=== PATIENT | female | born 1955 | race Caucasian/White ===

== ENCOUNTER 2017-12-26 14:24 | Inpatient (IN) ==
[2017-12-26] MEDS ORDERED: Piperacillin/Tazobactam 3.375 GM in 0.9 % Sodium Chloride Mini Bag 100 ML IVPB ONE (14:37)
[2017-12-26] MEDS ORDERED: 0.9 % Sodium Chloride 1,000 ML IVC ONE ×3 (14:37→15:31)
[2017-12-26] MEDS ORDERED: Isovue-370 500 ML INFUS..BTL IV ONE (14:37)
[2017-12-26] MEDS ORDERED: Ondansetron 4 MG/2 ML VIAL IVP ONE (14:37)
--- NOTE | 2017-12-26 14:40 | Emergency Department Note ---
Disposition Clinical Impression: Septic shock, Cellulitis, Panniculitis, ANA M (acute kidney injury), Lung nodule Disposition: Admitted As Inpatient Condition: Undetermined General Adult HPI - General Chief complaint: ED Wound/Laceration Stated complaint: Right leg,ABD,Vag swelling Time Seen by Provider: 12/26/17 14:32 - History of Present Illness Pain Scale: 5 - Related Data Home Medications Medication Instructions Recorded Confirmed Allopurinol [Zyloprim 100 MG] 100 mg PO DAILY 07/23/15 12/26/17 Apixaban [Eliquis] 5 mg PO BID 07/23/15 12/26/17 Atenolol [Tenormin] 25 mg PO DAILY 07/23/15 12/26/17 Atorvastatin Calcium [Lipitor] 20 mg PO DAILY 07/23/15 12/26/17 Ferrous Sulfate 325 mg PO DAILY 07/23/15 12/26/17 Lisinopril/Hydrochlorothiazide 1 tab PO DAILY 07/23/15 12/26/17 [Zestoretic 10-12.5 mg Tablet] HYDROcodone/Acet 10/325 mg [[place] 1 tab PO BID PRN 02/18/17 12/26/17 10-325 mg] Isosorbide MONOnitrate (24 HR) 30 mg PO DAILY 02/18/17 12/26/17 [Imdur] Omeprazole [PriLOSEC] 20 mg PO DAILY 02/18/17 12/26/17 Citalopram Hydrobromide 40 mg PO HS 12/26/17 12/26/17 [Citalopram HBr] Allergies Allergy/AdvReac Type Severity Reaction Status Date / Time metoprolol AdvReac Hives Verified 12/26/17 14:31 Past Medical History - Past Medical History Medical history: Reports: atrial fibrillation, hypertension Surgical history: Reports: appendectomy, cholecystectomy, hysterectomy, orthopedic, other Psychiatric history: Reports: depression - Social History Smoking Status: Never smoker Smokeless Tobacco Status: No Alcohol use: Reports: none Drug use: Reports: none Course Vital Signs Temperature 102.0 F H 12/26/17 14:29 Pulse Rate 105 12/26/17 14:29 Respiratory Rate 18 12/26/17 14:29 Blood Pressure 88/61 12/26/17 14:29 O2 Sat by Pulse Oximetry 94 12/26/17 14:29 Temperature 97.6 F 12/26/17 18:00 Pulse Rate 83 12/26/17 20:15 Respiratory Rate 16 12/26/17 18:00 Blood Pressure 94/54 12/26/17 18:00 O2 Sat by Pulse Oximetry 96 12/26/17 18:00 Oxygen Delivery Oxygen Delivery Room Air Medical Decision Making - Lab Data Result diagrams: 12/26/17 14:38 12/26/17 14:38 Lab Results 12/26/17 12/26/17 12/26/17 Range/Units 14:38 14:38 14:38 WBC 22.7 H (4.3-11.1) K/mcL RBC 4.12 (3.82-4.97) M/mcL Hgb 12.8 (11.5-15.4) g/dL Hct 38.2 (35.3-44.9) % MCV 92.7 (83.0-100.0) fL MCH 31.1 (28.0-33.3) pg MCHC 33.5 (31.6-35.5) g/dL RDW 13.2 (11.5-14.5) % Plt Count 223 (140-400) K/mcL MPV 10.6 (9.4-12.4) fL Immature Gran % 1.3 (0-4) % Seg Neutrophils % 77.6 % Lymphocytes % 7.4 % Monocytes % 13.3 % Eosinophils % 0.2 % Basophils % 0.2 % Neutrophils # 17.6 H (1.6-8.9) K/mcL Lymphocytes # 1.7 (0.6-4.6) K/mcL Monocytes # 3.0 H (0.0-1.3) K/mcL Eosinophils # 0.0 (0.0-0.6) K/mcL Basophils # 0.1 (0.0-0.2) K/mcL Sodium 131 L (136-145) mEq/L Potassium 3.5 (3.5-5.1) mEq/L Chloride 95 L (98-107) mEq/L Carbon Dioxide 21 L (23-29) mEq/L BUN 44 H (8-23) mg/dL Creatinine 2.32 H (0.60-1.20) mg/dL Est GFR ( Amer) 26 L (> 60) Est GFR (Non-Af Amer) 21 L (> 60) BUN/Creatinine Ratio 19 (6-26) Glucose 103 (70-105) mg/dL Calculated Osmolality 283 (280-300) Lactic Acid 2.7 H (0.5-2.2) mmol/L Calcium 8.8 (8.6-10.3) mg/dL Total Bilirubin 0.9 (0.3-1.0) mg/dL AST 11 L (13-39) Units/L ALT 11 (7-52) Units/L Alkaline Phosphatase 86 (34-104) Units/L Troponin I < 0.03 (< 0.04) ng/mL Serum Total Protein 7.5 (6.4-8.9) g/dL Albumin 3.5 (3.5-5.7) g/dL Globulin 4.0 H (2.4-3.5) g/dL Albumin/Globulin Ratio 0.9 L (1.1-2.2) Urine Color (Yellow) Urine Clarity (Clear) Urine pH (5.0-8.0) pH Units Ur Specific [place] (1.010-1.025) Urine Protein (Neg-Trace) mg/dL Urine Glucose (UA) (Normal) mg/dL Urine Ketones (Negative) mg/dL Urine Blood (Negative) Urine Nitrite (Negative) Urine Bilirubin (Negative) Urine Urobilinogen (Normal) mg/dL Ur Leukocyte Esterase (Negative) Urine Microscopic RBC (0-3) per hpf Urine Microscopic WBC (0-3) per hpf Ur Squamous Epith Cells (None-Few) per lpf Ur Renal Epithelial Cell (None-Few) per hpf Urine Bacteria (None-Few) per hpf Hyaline Casts (None-Few) per lpf Granular Casts (None Seen) per lpf Ur Culture Indicated? (NO) 12/26/17 Range/Units 15:03 WBC (4.3-11.1) K/mcL RBC (3.82-4.97) M/mcL Hgb (11.5-15.4) g/dL Hct (35.3-44.9) % MCV (83.0-100.0) fL MCH (28.0-33.3) pg MCHC (31.6-35.5) g/dL RDW (11.5-14.5) % Plt Count (140-400) K/mcL MPV (9.4-12.4) fL Immature Gran % (0-4) % Seg Neutrophils % % Lymphocytes % % Monocytes % % Eosinophils % % Basophils % % Neutrophils # (1.6-8.9) K/mcL Lymphocytes # (0.6-4.6) K/mcL Monocytes # (0.0-1.3) K/mcL Eosinophils # (0.0-0.6) K/mcL Basophils # (0.0-0.2) K/mcL Sodium (136-145) mEq/L Potassium (3.5-5.1) mEq/L Chloride (98-107) mEq/L Carbon Dioxide (23-29) mEq/L BUN (8-23) mg/dL Creatinine (0.60-1.20) mg/dL Est GFR ( Amer) (> 60) Est GFR (Non-Af Amer) (> 60) BUN/Creatinine Ratio (6-26) Glucose (70-105) mg/dL Calculated Osmolality (280-300) Lactic Acid (0.5-2.2) mmol/L Calcium (8.6-10.3) mg/dL Total Bilirubin (0.3-1.0) mg/dL AST (13-39) Units/L ALT (7-52) Units/L Alkaline Phosphatase (34-104) Units/L Troponin I (< 0.04) ng/mL Serum Total Protein (6.4-8.9) g/dL Albumin (3.5-5.7) g/dL Globulin (2.4-3.5) g/dL Albumin/Globulin Ratio (1.1-2.2) Urine Color [place] A (Yellow) Urine Clarity Turbid A (Clear) Urine pH 5.0 (5.0-8.0) pH Units Ur Specific [place] > 1.030 H (1.010-1.025) Urine Protein 30 H (Neg-Trace) mg/dL Urine Glucose (UA) Normal (Normal) mg/dL Urine Ketones Trace H (Negative) mg/dL Urine Blood Small H (Negative) Urine Nitrite Negative (Negative) Urine Bilirubin Moderate H (Negative) Urine Urobilinogen Normal (Normal) mg/dL Ur Leukocyte Esterase Large H (Negative) Urine Microscopic RBC 0-3 (0-3) per hpf Urine Microscopic WBC TNTC H (0-3) per hpf Ur Squamous Epith Cells Many H (None-Few) per lpf Ur Renal Epithelial Cell Moderate H (None-Few) per hpf Urine Bacteria Many H (None-Few) per hpf Hyaline Casts Few (None-Few) per lpf Granular Casts Many H (None Seen) per lpf Ur Culture Indicated? NO. A (NO) Critical Care Time Critical Care Time: Yes Total Critical Care Time: 30 Attestation: The high probability of a clinically significant, sudden or life threatening deterioration of the [] system(s) required my full and direct attention, intervention and personal management. The aggregate critical care time was [] minutes. This time is in addition to time spent performing reported procedures but includes the following: [] Data Review and interpretation [] Patient assessment and monitoring of vital signs [] Documentation [] Medication orders and management Attestation Statement - Attestation Attestation: I examined this patient and my medical decision-making was reviewed with the Resident Physician. I agree with the documented findings, disposition and treatment plan as described except to the extent set forth below. [id number] time provided Patient arrives with erythema and swelling to her lower anterior pelvis. Clinically she has panniculitis with cellulitis and possible underlying abscess. She is febrile and tachycardic and hypotensive meet sepsis criteria. She will require broad-spectrum antibiotics, fluid resuscitation and admission. It was mutually agreed to pursue CT scanning to determine the depth of the infection
--- NOTE | 2017-12-26 14:41 | Emergency Department Note ---
Disposition Clinical Impression: Septic shock, Panniculitis, ANA M (acute kidney injury), Lung nodule Cellulitis Qualifiers: Site of cellulitis: trunk Site of cellulitis of trunk: abdominal wall Qualified Code(s): L03.311 - Cellulitis of abdominal wall Disposition: Admitted As Inpatient Condition: Undetermined Referrals: Miriam Brantley [employer] [Advanced Practice Nurse] - Forms: ED Satisfaction Letter Time of Disposition: 16:26 General Adult HPI - General Chief complaint: ED Wound/Laceration Stated complaint: Right leg,ABD,Vag swelling Time Seen by Provider: 12/26/17 14:32 Source: patient Mode of arrival: ambulatory Limitations: no limitations Nursing Notes Reviewed: Yes Vital Signs Reviewed: Yes - History of Present Illness HPI Narrative: 62-year-old female arrives to the emergency department with concern for abscess , cellulitis of the patient's suprapubic panus. The patient states this started roughly 3 days ago and is continued to worsen. The patient is noted to be febrile at 102 at home. The patient needs sepsis criteria with a source being the sialitis an abscess of her groin. The patient is noted to be tachycardic, hypotensive. Sepsis subset will be ordered. The patient was started on broad-spectrum antibiotics. After conversation with the patient, we will perform a CT of her abdomen and pelvis with concern for spreading of the infection. The patient will be started on IV hydration and brought sect remainder buttocks as discussed. She denies any other complaints at this time other than a mild amount of nausea. She denies any abdominal pain, chest pain, difficulty breathing. The patient does admit to baseline urinary frequency. She denies any other complaints. Patient states she does have a history of abscesses in the past but it is been a long time. Pain Scale: 5 - Related Data Home Medications Medication Instructions Recorded Confirmed Allopurinol [Zyloprim 100 MG] 100 mg PO DAILY 07/23/15 12/26/17 Apixaban [Eliquis] 5 mg PO BID 07/23/15 12/26/17 Atenolol [Tenormin] 25 mg PO DAILY 07/23/15 12/26/17 Atorvastatin Calcium [Lipitor] 20 mg PO DAILY 07/23/15 12/26/17 Ferrous Sulfate 325 mg PO DAILY 07/23/15 12/26/17 Lisinopril/Hydrochlorothiazide 1 tab PO DAILY 07/23/15 12/26/17 [Zestoretic 10-12.5 mg Tablet] HYDROcodone/Acet 10/325 mg [[place] 1 tab PO BID PRN 02/18/17 12/26/17 10-325 mg] Isosorbide MONOnitrate (24 HR) 30 mg PO DAILY 02/18/17 12/26/17 [Imdur] Omeprazole [PriLOSEC] 20 mg PO DAILY 02/18/17 12/26/17 Citalopram Hydrobromide 40 mg PO HS 12/26/17 12/26/17 [Citalopram HBr] Allergies Allergy/AdvReac Type Severity Reaction Status Date / Time metoprolol AdvReac Hives Verified 12/26/17 14:31 All systems ED: reviewed and negative except as stated. Constitutional: Reports: fever, chills, weakness ENT ED: Denies: dysphagia Cardiovascular: Denies: chest pain Respiratory: Denies: dyspnea Gastrointestinal: Reports: abdominal pain, nausea. Denies: vomiting, diarrhea, constipation, hematemesis, melena, hematochezia Genitourinary: Reports: frequency. Denies: urgency, dysuria, hematuria, discharge, abnormal menses Musculoskeletal: Reports: myalgia. Denies: back pain, neck pain, arthralgia Integumentary: Reports: lesions Neurological: Reports: weakness. Denies: headache, numbness, paresthesias, confusion Past Medical History - Past Medical History Attestation: Yes The following information was validated with the patient. Source: patient, old records reviewed Medical history: Reports: atrial fibrillation, hypertension Surgical history: Reports: appendectomy, cholecystectomy, hysterectomy, orthopedic, other Psychiatric history: Reports: depression - Social History Smoking Status: Never smoker Smokeless Tobacco Status: No Alcohol use: Reports: none Drug use: Reports: none Physical Exam - General Limitations: no limitations General appearance: alert, in no apparent distress - Head Head exam: atraumatic, normocephalic, normal inspection - Eye Eye exam: Present: normal appearance, PERRL, EOMI - ENT ENT exam: normal exam, normal oropharynx, mucous membranes moist - Neck Neck exam: Present: normal inspection, full ROM, trachea midline - Chest Chest inspection: Present: normal inspection - Respiratory Respiratory exam: Present: normal lung sounds bilaterally - Cardiovascular Cardiovascular exam: Present: normal rhythm, tachycardia, normal heart sounds - Abdominal Exam Abdominal exam: Present: soft, tenderness (Suprapubic region), other (Patient has a large amount of erythema with induration and abscess in her suprapubic region along the pannus. Consistent with panniculitis. In addition the patient has some hemorrhagic bullae of this region. There is a small amount of blood noted around the abscess and bullae as well. Tender to palpation and hot to the touch.). Absent: distention, guarding, rebound, rigidity - Extremities Exam Extremities exam: Present: normal inspection, full ROM. Absent: tenderness, pedal edema - Neurological Exam Neurological exam: Present: alert, oriented X3 - Skin Skin exam: Present: warm, dry Course Vital Signs Temperature 102.0 F H 12/26/17 14:29 Pulse Rate 105 12/26/17 14:29 Respiratory Rate 18 12/26/17 14:29 Blood Pressure 88/61 12/26/17 14:29 O2 Sat by Pulse Oximetry 94 12/26/17 14:29 Temperature 100.9 F H 12/26/17 16:07 Pulse Rate 77 12/26/17 16:07 Respiratory Rate 16 12/26/17 16:07 Blood Pressure 91/58 12/26/17 16:07 O2 Sat by Pulse Oximetry 94 12/26/17 16:07 Oxygen Delivery Oxygen Delivery Room Air Medical Decision Making - [facility] Narrative Medical decision making narrative: Patient's workup in the emergency department demonstrates septic shock. The patient has an acute kidney injury as well. The patient's abdominal and pelvic CT scan reveals no definitive abscess and only demonstrates cellulitis. No gas or other concerning for Shona's gangrene. The patient was given broad- spectrum antibiotics including a dose of vancomycin and Zosyn here in the emergency department as well as 30 mL/kg IV fluids. The patient's blood pressure quickly improved after the first liter of IV fluids. The patient will be admitted to the hospital for further workup and care. Patient agrees to plan of care. No further questions or concerns are noted at this time. Accepted by Dr. Hillman. - Lab Data Lab results reviewed: Yes I reviewed the patient's lab results. Result diagrams: 12/26/17 14:38 12/26/17 14:38 Lab Results 12/26/17 12/26/17 12/26/17 Range/Units 14:38 14:38 14:38 WBC 22.7 H (4.3-11.1) K/mcL RBC 4.12 (3.82-4.97) M/mcL Hgb 12.8 (11.5-15.4) g/dL Hct 38.2 (35.3-44.9) % MCV 92.7 (83.0-100.0) fL MCH 31.1 (28.0-33.3) pg MCHC 33.5 (31.6-35.5) g/dL RDW 13.2 (11.5-14.5) % Plt Count 223 (140-400) K/mcL MPV 10.6 (9.4-12.4) fL Immature Gran % 1.3 (0-4) % Seg Neutrophils % 77.6 % Lymphocytes % 7.4 % Monocytes % 13.3 % Eosinophils % 0.2 % Basophils % 0.2 % Neutrophils # 17.6 H (1.6-8.9) K/mcL Lymphocytes # 1.7 (0.6-4.6) K/mcL Monocytes # 3.0 H (0.0-1.3) K/mcL Eosinophils # 0.0 (0.0-0.6) K/mcL Basophils # 0.1 (0.0-0.2) K/mcL Sodium 131 L (136-145) mEq/L Potassium 3.5 (3.5-5.1) mEq/L Chloride 95 L (98-107) mEq/L Carbon Dioxide 21 L (23-29) mEq/L BUN 44 H (8-23) mg/dL Creatinine 2.32 H (0.60-1.20) mg/dL Est GFR ( Amer) 26 L (> 60) Est GFR (Non-Af Amer) 21 L (> 60) BUN/Creatinine Ratio 19 (6-26) Glucose 103 (70-105) mg/dL Calculated Osmolality 283 (280-300) Lactic Acid 2.7 H (0.5-2.2) mmol/L Calcium 8.8 (8.6-10.3) mg/dL Total Bilirubin 0.9 (0.3-1.0) mg/dL AST 11 L (13-39) Units/L ALT 11 (7-52) Units/L Alkaline Phosphatase 86 (34-104) Units/L Troponin I < 0.03 (< 0.04) ng/mL Serum Total Protein 7.5 (6.4-8.9) g/dL Albumin 3.5 (3.5-5.7) g/dL Globulin 4.0 H (2.4-3.5) g/dL Albumin/Globulin Ratio 0.9 L (1.1-2.2) Urine Color (Yellow) Urine Clarity (Clear) Urine pH (5.0-8.0) pH Units Ur Specific [place] (1.010-1.025) Urine Protein (Neg-Trace) mg/dL Urine Glucose (UA) (Normal) mg/dL Urine Ketones (Negative) mg/dL Urine Blood (Negative) Urine Nitrite (Negative) Urine Bilirubin (Negative) Urine Urobilinogen (Normal) mg/dL Ur Leukocyte Esterase (Negative) Urine Microscopic RBC (0-3) per hpf Urine Microscopic WBC (0-3) per hpf Ur Squamous Epith Cells (None-Few) per lpf Ur Renal Epithelial Cell (None-Few) per hpf Urine Bacteria (None-Few) per hpf Hyaline Casts (None-Few) per lpf Granular Casts (None Seen) per lpf Ur Culture Indicated? (NO) 12/26/17 Range/Units 15:03 WBC (4.3-11.1) K/mcL RBC (3.82-4.97) M/mcL Hgb (11.5-15.4) g/dL Hct (35.3-44.9) % MCV (83.0-100.0) fL MCH (28.0-33.3) pg MCHC (31.6-35.5) g/dL RDW (11.5-14.5) % Plt Count (140-400) K/mcL MPV (9.4-12.4) fL Immature Gran % (0-4) % Seg Neutrophils % % Lymphocytes % % Monocytes % % Eosinophils % % Basophils % % Neutrophils # (1.6-8.9) K/mcL Lymphocytes # (0.6-4.6) K/mcL Monocytes # (0.0-1.3) K/mcL Eosinophils # (0.0-0.6) K/mcL Basophils # (0.0-0.2) K/mcL Sodium (136-145) mEq/L Potassium (3.5-5.1) mEq/L Chloride (98-107) mEq/L Carbon Dioxide (23-29) mEq/L BUN (8-23) mg/dL Creatinine (0.60-1.20) mg/dL Est GFR ( Amer) (> 60) Est GFR (Non-Af Amer) (> 60) BUN/Creatinine Ratio (6-26) Glucose (70-105) mg/dL Calculated Osmolality (280-300) Lactic Acid (0.5-2.2) mmol/L Calcium (8.6-10.3) mg/dL Total Bilirubin (0.3-1.0) mg/dL AST (13-39) Units/L ALT (7-52) Units/L Alkaline Phosphatase (34-104) Units/L Troponin I (< 0.04) ng/mL Serum Total Protein (6.4-8.9) g/dL Albumin (3.5-5.7) g/dL Globulin (2.4-3.5) g/dL Albumin/Globulin Ratio (1.1-2.2) Urine Color [place] A (Yellow) Urine Clarity Turbid A (Clear) Urine pH 5.0 (5.0-8.0) pH Units Ur Specific [place] > 1.030 H (1.010-1.025) Urine Protein 30 H (Neg-Trace) mg/dL Urine Glucose (UA) Normal (Normal) mg/dL Urine Ketones Trace H (Negative) mg/dL Urine Blood Small H (Negative) Urine Nitrite Negative (Negative) Urine Bilirubin Moderate H (Negative) Urine Urobilinogen Normal (Normal) mg/dL Ur Leukocyte Esterase Large H (Negative) Urine Microscopic RBC 0-3 (0-3) per hpf Urine Microscopic WBC TNTC H (0-3) per hpf Ur Squamous Epith Cells Many H (None-Few) per lpf Ur Renal Epithelial Cell Moderate H (None-Few) per hpf Urine Bacteria Many H (None-Few) per hpf Hyaline Casts Few (None-Few) per lpf Granular Casts Many H (None Seen) per lpf Ur Culture Indicated? NO. A (NO) - Radiology Data Radiology results reviewed: Yes I reviewed the patient's radiology results. - EKG Data EKG #1 EKG attestation: Yes I reviewed and interpreted this EKG. EKG results narrative: Heart rate 97 bpm. Normal sinus rhythm. No ST elevation but there is some noted ST depression in V3, V4, V5. No other acute changes noted. EKG with nonspecific changes noted from 10/21/2015. Sepsis Reassessment Note - Evaluation Current Stage of Sepsis: septic shock Possible Source of Sepsis: skin/soft tissue - Focused Exam Date of Encounter: 12/26/17 Time of Encounter: 15:31 Vital Signs: Vital Signs Temp Pulse Resp BP Pulse Ox 12/26/17 16:07 100.9 F H 77 16 91/58 94 12/26/17 15:23 89 20 96/60 91 12/26/17 14:29 102.0 F H 105 18 88/61 94 Respiratory Exam: Present: CTA bilaterally Cardiovascular Exam: Present: tachycardia Capillary Refill: < 2 seconds Peripheral Pulse Strength: 3+ normal Peripheral Pulse Location: Pedal Skin Exam: normal turgor
[2017-12-26 14:55] LABS: Basophils # 0.1 K/mcL (0.0-0.2); Basophils % 0.2 %; Eosinophils % 0.2 %; Hematocrit 38.2 % (35.3-44.9); Hemoglobin 12.8 g/dL (11.5-15.4); Immature Granulocytes % 1.3 % (0-4); Lymphocytes # 1.7 K/mcL (0.6-4.6); Lymphocytes % 7.4 %; Mean Corpuscular HGB Conc 33.5 g/dL (31.6-35.5); Mean Corpuscular Hemoglobin 31.1 pg (28.0-33.3); Mean Corpuscular Volume 92.7 fL (83.0-100.0); Mean Platelet Volume 10.6 fL (9.4-12.4); Monocytes % 13.3 %; Neutrophils # 17.6 K/mcL (1.6-8.9); Platelet Count 223 K/mcL (140-400); Red Blood Count 4.12 M/mcL (3.82-4.97); Red Cell Distribution Width 13.2 % (11.5-14.5); Segmented Neutrophils % 77.6 %
[2017-12-26 15:12] LABS: Bilirubin,Urine Moderate (Negative); Blood,Urine Small (Negative); Clarity,Urine Turbid (Clear); Color,Urine Orange (Yellow); Glucose,Urine (UA) Normal (Normal); Ketones,Urine Trace mg/dL (Negative); Leukocyte Esterase,Urine Large (Negative); Nitrite,Urine Negative (Negative); Protein,Urine 30 mg/dL (Neg-Trace); Specific Gravity,Urine > 1.030 (1.010-1.025); Urobilinogen,Urine Normal (Normal)
[2017-12-26 15:14] LABS: Hyaline Casts,Urine Few per lpf (None-Few); Squamous Epithelial Cell,Urine Many per lpf (None-Few); WBC,Urine TNTC per hpf (0-3)
[2017-12-26 15:19] LABS: Troponin I < 0.03 ng/mL (< 0.04)
[2017-12-26 15:20] LABS: Alanine Aminotransferase 11 Units/L (7-52); Albumin 3.5 g/dL (3.5-5.7); Albumin/Globulin Ratio 0.9 (1.1-2.2); Alkaline Phosphatase 86 Units/L (34-104); Aspartate Amino Transferase 11 Units/L (13-39); BUN/Creatinine Ratio 19 (6-26); Bilirubin,Total 0.9 mg/dL (0.3-1.0); Blood Urea Nitrogen 44 mg/dL (8-23); Calcium 8.8 mg/dL (8.6-10.3); Carbon Dioxide 21 mEq/L (23-29); Chloride 95 mEq/L (98-107); Glucose 103 mg/dL (70-105); Osmolality,Calculated 283 (280-300); Potassium 3.5 mEq/L (3.5-5.1); Sodium 131 mEq/L (136-145); Total Protein 7.5 g/dL (6.4-8.9); eGFR For Non-African Americans 21 (> 60)
[2017-12-26 15:30] LABS: Granular Casts,Urine Many per lpf (None Seen)
[2017-12-26 15:31] LABS: Bacteria,Urine Many per hpf (None-Few)
[2017-12-26 15:32] LABS: RBC,Urine 0-3 per hpf (0-3)
[2017-12-26 15:33] LABS: Renal Epithelial Cells,Urine Moderate per hpf (None-Few)
[2017-12-26] MEDS ORDERED: Naloxone 0.4 MG/ML INJ IVP PRN (18:47)
[2017-12-26] MEDS ORDERED: *HR* HYDROcodone/Acet 10/325 mg TABLET PO PRN (18:53)
--- NOTE | 2017-12-26 19:01 | Internal Med History&Physical ---
Date of Encounter: 12/26/17 Time of Encounter: 18:00 Internal Medicine - H&P: HPI Chief complaint: Abdominal cellulitis Admitted From: Home Plans for Post Hospital Care: Home History of present illness: Patient is a 62-year-old female with past medical history significant for atrial fibrillation on Eliquis, hypertension and hyperlipidemia who presents to the ER on 12/26/17 due to right abdomen cellulitis. Patient reports a 2 day history of right abdominal cellulitis with bloody drainage. Patient also reports of fevers and chills with a MAXIMUM TEMPERATURE of 103 at home. Patient came to the ER for further evaluation. In the ER, patient was found to be septic with acute renal failure in addition to leukocytosis with fever and elevated lactic acid. CT of the abdomen was done which showed findings suggestive of cellulitis ascending from the right lower quadrant anterior abdominal wall into the right groin and mons pubis but no findings suggestive of associated abscess. Patient also with incidental finding of a 1.2 cm x 0.8 cm solid nodule of the right lower lobe. Patient will be admitted to the progressive unit for sepsis secondary to abdominal cellulitis. Past Med Surg Social Fam HX - Past Medical History Medical history: atrial fibrillation, hypertension Additional medical history: iron deficiency anemia, gout, a fib, OBESITY, DEPRESSION Psychiatric history: depression - Past Surgical History Surgical History: appendectomy, cholecystectomy, hysterectomy, orthopedic, other Additional surgical history: RIGHT ELBOW SURGERY, TUBAL LIGATION, LEFT BREAST BIOPSY, partial hysterectomy - Social History Smoking Status: Never smoker Smokeless Tobacco Status: No Alcohol use: none Drug use: none - Additional Family History Additional family history: Noncontributory Internal Medicine - H&P: Meds Allopurinol [Zyloprim 100 MG] 100 mg PO DAILY 07/23/15 [History] Apixaban [Eliquis] 5 mg PO BID 07/23/15 [History] Atenolol [Tenormin] 25 mg PO DAILY 07/23/15 [History] Atorvastatin Calcium [Lipitor] 20 mg PO DAILY 07/23/15 [History] Ferrous Sulfate 325 mg PO DAILY 07/23/15 [History] Lisinopril/Hydrochlorothiazide [Zestoretic 10-12.5 mg Tablet] 1 tab PO DAILY [History] HYDROcodone/Acet 10/325 mg [[place]ilbert 10-325 mg] 1 tab PO BID PRN 02/18/17 [History] Isosorbide MONOnitrate (24 HR) [Imdur] 30 mg PO DAILY 02/18/17 [History] Omeprazole [PriLOSEC] 20 mg PO DAILY 02/18/17 [History] Citalopram Hydrobromide [Citalopram HBr] 40 mg PO HS 12/26/17 [History] 3 Allergy/AdvReac Type Severity Reaction Status Date / Time metoprolol AdvReac Hives Verified 12/26/17 14:31 All Systems PM: A 10-system review of systems was performed and is negative for pertinent findings except as documented above in the HPI. - Constitutional Vitals: Temp Pulse Resp BP Pulse Ox 97.6 F 75 16 94/54 96 12/26/17 18:00 12/26/17 18:00 12/26/17 18:00 12/26/17 18:00 12/26/17 18:00 General appearance: Present: A&O X 3, no acute distress - Head Head exam: Present: normocephalic - Eye Eye exam: Present: normal appearance Pupils: Present: PERRL - ENT ENT exam: Present: mucous membranes moist - Respiratory Respiratory exam: Present: CTAB. Absent: accessory muscle use, rales, rhonchi, wheezes - Cardiovascular Cardiovascular exam: Present: RRR, +S1, +S2. Absent: diastolic murmur, gallop, rubs, systolic murmur - GI/Abdominal GI/Abdominal exam: Present: normal bowel sounds, soft, no peritoneal signs. Absent: distended, tenderness - Extremities Exam Extremities exam: Absent: pedal edema - Neurological Exam Neurological exam: Present: oriented X3 - Psychiatric Psychiatric exam: Present: normal mood - Skin Skin exam: Present: erythema (Patient with large cellulitis with drainage and indurated area which is tender to touch) Internal Med - H&P Results - Labs CBC & Chem 7: 12/26/17 14:38 12/26/17 14:38 - Assessment and plan (1) Sepsis Current Visit: Yes Status: Acute Assessment and plan: Patient with leukocytosis, acute renal failure fever and lactic acid secondary to cellulitis and UTI Will continue IV antibiotics and IV fluids as below Qualifiers: Sepsis type: sepsis due to unspecified organism Qualified Code(s): A41.9 - Sepsis, unspecified organism (2) Cellulitis Current Visit: Yes Status: Acute Assessment and plan: Patient with large cellulitis and indurated region which was tender to touch with some drainage CT of the abdomen was done which showed findings suggestive of cellulitis ascending from the right lower quadrant anterior abdominal wall into the right groin and mons pubis but no findings suggestive of associated abscess. Continue IV vancomycin General surgery consulted and appreciate any additional recommendations Qualifiers: Site of cellulitis: trunk Site of cellulitis of trunk: abdominal wall Qualified Code(s): L03.311 - Cellulitis of abdominal wall (3) UTI (urinary tract infection) Current Visit: Yes Status: Acute Assessment and plan: Patient reports his symptoms of dysuria Urinalysis not sent due to contamination Will continue IV Zosyn Qualifiers: Encounter type: initial encounter Qualified Code(s): T83.510A - Infection and inflammatory reaction due to cystostomy catheter, initial encounter; N39.0 - Urinary tract infection, site not specified (4) Acute renal failure Current Visit: Yes Status: Acute Assessment and plan: Patient with elevated creatinine of 2.32 Suspect secondary to sepsis above Continue IV fluids Qualifiers: Acute renal failure type: unspecified Qualified Code(s): N17.9 - Acute kidney failure, unspecified (5) Lung nodule Current Visit: Yes Status: Acute Assessment and plan: Patient with incidental findings of a 1.2 cm x 0.8 cm solid nodule of the right lower lobe. (6) DVT prophylaxis Current Visit: Yes Status: Acute Assessment and plan: Continue Eliquis - Time Spent With Patient Total time spent is greater than 50% in coordination of care (as documented) at patient's floor/unit and/or counseling patient:
--- NOTE | 2017-12-26 20:33 | General Surgery Consult Note ---
Date of Encounter: 12/26/17 Time of Encounter: 20:29 Assessment and Plan (1) Cellulitis Current Visit: Yes Status: Acute 62F with significant cellulitis of suprapubic region; NPO IVF abx: zosyn, vanc pain control no need for surg at present; will cont to follow Qualifiers: Site of cellulitis: trunk Site of cellulitis of trunk: abdominal wall Qualified Code(s): L03.311 - Cellulitis of abdominal wall History of Present Illness Consult date: 12/26/17 Reason for consult: other (cellulitis) History of present illness: 62F with PMH significant for atrial fibrillation on Eliquis, hypertension and hyperlipidemia who presents with 4 day history of worsening redness of her suprapubic region as well as pain. She delayed medical attention because she was thinking her symptoms would improve. She did have a temperature of [address] scan was obtained, which was reviewed and interpreted by me, which demonstrated soft tissue thickening and inflammation, but no abscess nor any subcutaneous emphysema. Past Med Surg Social Fam HX - Past Medical History Medical history: atrial fibrillation, hypertension Additional medical history: iron deficiency anemia, gout, a fib, OBESITY, DEPRESSION Psychiatric history: depression - Past Surgical History Surgical History: appendectomy, cholecystectomy, hysterectomy, orthopedic, other Additional surgical history: RIGHT ELBOW SURGERY, TUBAL LIGATION, LEFT BREAST BIOPSY, partial hysterectomy - Social History Smoking Status: Never smoker Smokeless Tobacco Status: No Alcohol use: none Drug use: none - Additional Family History Additional family history: non contributory Medications and Allergies Allopurinol [Zyloprim 100 MG] 100 mg PO DAILY 07/23/15 [History] Apixaban [Eliquis] 5 mg PO BID 07/23/15 [History] Atenolol [Tenormin] 25 mg PO DAILY 07/23/15 [History] Atorvastatin Calcium [Lipitor] 20 mg PO DAILY 07/23/15 [History] Ferrous Sulfate 325 mg PO DAILY 07/23/15 [History] Lisinopril/Hydrochlorothiazide [Zestoretic 10-12.5 mg Tablet] 1 tab PO DAILY [History] HYDROcodone/Acet 10/325 mg [[place] 10-325 mg] 1 tab PO BID PRN 02/18/17 [History] Isosorbide MONOnitrate (24 HR) [Imdur] 30 mg PO DAILY 02/18/17 [History] Omeprazole [PriLOSEC] 20 mg PO DAILY 02/18/17 [History] Citalopram Hydrobromide [Citalopram HBr] 40 mg PO HS 12/26/17 [History] 3 Allergy/AdvReac Type Severity Reaction Status Date / Time metoprolol AdvReac Hives Verified 12/26/17 14:31 Review of Systems All systems PM: The remainder of the systems were reviewed and are negative General Surgery Exam Initial Vital Signs Temp Pulse Resp BP Pulse Ox 102.0 F H 105 18 88/61 94 12/26/17 14:29 12/26/17 14:29 12/26/17 14:29 12/26/17 14:29 12/26/17 14:29 - General physical appearance no distress - Eyes normal ocular movement - ENT normocephalic - Neck no lymphadectomy - Respiratory normal expansion, normal respiratory effort - Cardiovascular Cardiovascular exam: Present: RRR - Abdomen Abdomen general surgery: Present: soft, non tender - Integumentary Integumentary general surgery: Present: other (erythema, tenderness of suprapubic region; no crepitus; no purulent drainage; ) - Neurologic Present: CN 2-12 grossly intact - Musculoskeletal Present: normal posture - Psychiatric Psychiatric general surgery: Present: A&Ox3 Exam Initial Vital Signs Temp Pulse Resp BP Pulse Ox 102.0 F H 105 18 88/61 94 12/26/17 14:29 12/26/17 14:29 12/26/17 14:29 12/26/17 14:29 12/26/17 14:29 Results - Labs 12/26/17 14:38 12/26/17 14:38 Abnormal lab results WBC 22.7 K/mcL (4.3-11.1) H 12/26/17 14:38 Neutrophils # 17.6 K/mcL (1.6-8.9) H 12/26/17 14:38 Monocytes # 3.0 K/mcL (0.0-1.3) H 12/26/17 14:38 Sodium 131 mEq/L (136-145) L 12/26/17 14:38 Chloride 95 mEq/L (98-107) L 12/26/17 14:38 Carbon Dioxide 21 mEq/L (23-29) L 12/26/17 14:38 BUN 44 mg/dL (8-23) H 12/26/17 14:38 Creatinine 2.32 mg/dL (0.60-1.20) H 12/26/17 14:38 Est GFR ( Amer) 26 (> 60) L 12/26/17 14:38 Est GFR (Non-Af Amer) 21 (> 60) L 12/26/17 14:38 AST 11 Units/L (13-39) L 12/26/17 14:38 Globulin 4.0 g/dL (2.4-3.5) H 12/26/17 14:38 Albumin/Globulin Ratio 0.9 (1.1-2.2) L 12/26/17 14:38 Urine Color [place] (Yellow) A 12/26/17 15:03 Urine Clarity Turbid (Clear) A 12/26/17 15:03 Ur Specific [place] > 1.030 (1.010-1.025) H 12/26/17 15:03 Urine Protein 30 mg/dL (Neg-Trace) H 12/26/17 15:03 Urine Ketones Trace mg/dL (Negative) H 12/26/17 15:03 Urine Blood Small (Negative) H 12/26/17 15:03 Urine Bilirubin Moderate (Negative) H 12/26/17 15:03 Ur Leukocyte Esterase Large (Negative) H 12/26/17 15:03 Urine Microscopic WBC TNTC per hpf (0-3) H 12/26/17 15:03 Ur Squamous Epith Cells Many per lpf (None-Few) H 12/26/17 15:03 Ur Renal Epithelial Cell Moderate per hpf (None-Few) H 12/26/17 15:03 Urine Bacteria Many per hpf (None-Few) H 12/26/17 15:03 Granular Casts Many per lpf (None Seen) H 12/26/17 15:03 Ur Culture Indicated? NO. (NO) A 12/26/17 15:03 All other labs normal. - Imaging CT scan - abdomen: report reviewed, image reviewed CT scan - pelvis: report reviewed, image reviewed Consult Discharge Plan - Plan Referrals: Candy Wolf, EDWARD [Primary Care Provider] -
[2017-12-26] MEDS: 0.9 % Sodium Chloride 1,000 ML IVC SCH (20:43)
[2017-12-26] MEDS: Apixaban 5 MG TABLET PO SCH (20:44)
[2017-12-26] MEDS: Piperacillin/Tazobactam 3.375 GM in 0.9 % Sodium Chloride Mini Bag 100 ML IVPB SCH (23:26)
[2017-12-27] MEDS: 0.9 % Sodium Chloride 1,000 ML IVC SCH ×2 (04:00→13:16)
[2017-12-27] MEDS: Acetaminophen 325 MG TABLET PO PRN (04:21)
[2017-12-27 05:31] LABS: Basophils % 0.1 %; Eosinophils # 0.1 K/mcL (0.0-0.6); Eosinophils % 0.6 %; Hematocrit 31.2 % (35.3-44.9); Immature Granulocytes % 0.7 % (0-4); Lymphocytes # 1.1 K/mcL (0.6-4.6); Lymphocytes % 7.5 %; Mean Corpuscular Hemoglobin 31.6 pg (28.0-33.3); Mean Corpuscular Volume 93.1 fL (83.0-100.0); Mean Platelet Volume 10.4 fL (9.4-12.4); Monocytes # 2.4 K/mcL (0.0-1.3); Monocytes % 16.6 %; Neutrophils # 10.7 K/mcL (1.6-8.9); Platelet Count 164 K/mcL (140-400); Red Blood Count 3.35 M/mcL (3.82-4.97); Red Cell Distribution Width 13.2 % (11.5-14.5); Segmented Neutrophils % 74.5 %
[2017-12-27 05:32] LABS: Hemoglobin 10.6 g/dL (11.5-15.4)
[2017-12-27 06:21] LABS: Bilirubin,Urine Negative (Negative); Blood,Urine Moderate (Negative); Clarity,Urine Cloudy (Clear); Color,Urine Yellow (Yellow); Glucose,Urine (UA) Normal (Normal); Ketones,Urine Negative (Negative); Leukocyte Esterase,Urine Moderate (Negative); Nitrite,Urine Negative (Negative); PH,Urine 5.5 pH Units (5.0-8.0); Protein,Urine 100 mg/dL (Neg-Trace); Specific Gravity,Urine 1.023 (1.010-1.025); Urobilinogen,Urine Normal (Normal)
[2017-12-27 06:24] LABS: Hyaline Casts,Urine None Seen per lpf (None-Few); WBC,Urine 15-30 per hpf (0-3)
[2017-12-27 06:46] LABS: Bacteria,Urine Few per hpf (None-Few); Squamous Epithelial Cell,Urine Few per lpf (None-Few)
[2017-12-27 06:46] LABS: Calcium 7.3 mg/dL (8.6-10.3); Potassium 3.2 mEq/L (3.5-5.1)
[2017-12-27] MEDS: Apixaban 5 MG TABLET PO SCH ×2 (08:15→21:17)
[2017-12-27] MEDS: Piperacillin/Tazobactam 3.375 GM in 0.9 % Sodium Chloride Mini Bag 100 ML IVPB SCH ×2 (08:15→16:12)
[2017-12-27] MEDS: Isosorbide MONOnitrate (24 HR) 30 MG TAB.ER.24H PO SCH (08:15)
--- NOTE | 2017-12-27 11:06 | General Surgery Progress Note ---
<Rosa Isela Lancaster E - Last Filed: 12/27/17 11:04> Date of Encounter: 12/27/17 Time of Encounter: 11:04 - Assessment and Plan (1) Cellulitis Current Visit: Yes Status: Acute IVF and pain medication as per primary continue antibiotics No need for surgery at this time Surgery will sign off at this time, thank you for involving us in this patient' s care, please feel free to contact us with any questions. Qualifiers: Site of cellulitis: trunk Site of cellulitis of trunk: abdominal wall Qualified Code(s): L03.311 - Cellulitis of abdominal wall Subjective Patient reports: feels better (Patient states she is feeling much better than yesterday and is able to ambulate easier) Objective Vital Signs - Last 8 Hours Temp Pulse Resp BP Pulse Ox 12/27/17 07:48 98.8 F 84 18 104/66 95 12/27/17 06:12 100.1 F H 12/27/17 05:03 102.4 F H 89 18 97/60 99 Intake and Output 12/26/17 12/27/17 12/27/17 23:59 07:59 15:59 Intake Total 1000 / 2000 100 / 100 240 / 240 Output Total 100 / 100 Balance 1000 / 2000 0 / 0 240 / 240 Intake: IV Fluids 1000 / 1000 100 / 100 0.9 % Sodium Chloride 1,000 ML 1000 / 1000 @ 999 mls/hr IVC .Q1H1M ONE Rx# :[id number] Zosyn 3.375 GM In 0.9 % Sodium 100 / 100 Chloride (Mini-Bag +) 100 ML @ 25 mls/hr IVPB Q8HR MARKUS Rx#: [id number] Oral 240 / 240 Output: Urine 100 / 100 Other: Meal Breakfast Percent of Meal Consumed 100% Stool Size Moderate Stool Consistency loose Stool Color Brown Green # Voids 1 # Bowel Movements 1 Weight 90.4 kg Patient Weight 12/27/17 23:59 Weight 90.4 kg - General physical appearance well developed, well nourished, no distress - Respiratory normal expansion, normal respiratory effort, clear to auscultation - Cardiovascular Cardiovascular exam: Present: RRR, no murmurs/rubs/gallops - Abdomen Abdomen: Present: bowel sounds present, soft, non tender - Integumentary other (area of erythema slighlty smaller than yesterday according to patient, tenderness over the suprapubic region, no sign of abscess or necrotic tissue) - Psychiatric oriented to time, oriented to person, oriented to place - Labs 12/27/17 05:19 12/27/17 05:19 Diabetes panel 12/27/17 Range/Units 05:19 Sodium 133 L (136-145) mEq/L Potassium 3.2 L (3.5-5.1) mEq/L Chloride 106 (98-107) mEq/L Carbon Dioxide 18 L (23-29) mEq/L BUN 39 H (8-23) mg/dL Creatinine 1.55 H (0.60-1.20) mg/dL Glucose 130 H (70-105) mg/dL Calcium 7.3 L (8.6-10.3) mg/dL Calcium panel 12/27/17 Range/Units 05:19 Calcium 7.3 L (8.6-10.3) mg/dL Pituitary panel 12/27/17 Range/Units 05:19 Sodium 133 L (136-145) mEq/L Potassium 3.2 L (3.5-5.1) mEq/L Chloride 106 (98-107) mEq/L Carbon Dioxide 18 L (23-29) mEq/L BUN 39 H (8-23) mg/dL Creatinine 1.55 H (0.60-1.20) mg/dL Glucose 130 H (70-105) mg/dL Calcium 7.3 L (8.6-10.3) mg/dL Adrenal panel 12/27/17 Range/Units 05:19 Sodium 133 L (136-145) mEq/L Potassium 3.2 L (3.5-5.1) mEq/L Chloride 106 (98-107) mEq/L Carbon Dioxide 18 L (23-29) mEq/L BUN 39 H (8-23) mg/dL Creatinine 1.55 H (0.60-1.20) mg/dL Glucose 130 H (70-105) mg/dL Calcium 7.3 L (8.6-10.3) mg/dL Consult Discharge Plan - Plan Referrals: Candy Wolf, EDWARD [Primary Care Provider] - <Segun Tipton - Last Filed: 12/27/17 11:57> Date of Encounter: 12/27/17 - Assessment and Plan (1) Cellulitis Current Visit: Yes Status: Acute Qualifiers: Site of cellulitis: trunk Site of cellulitis of trunk: abdominal wall Qualified Code(s): L03.311 - Cellulitis of abdominal wall Objective Vital Signs - Last 8 Hours Temp Pulse Resp BP Pulse Ox 12/27/17 11:36 99.2 F 72 18 90/53 96 12/27/17 07:48 98.8 F 84 18 104/66 95 12/27/17 06:12 100.1 F H 12/27/17 05:03 102.4 F H 89 18 97/60 99 Intake and Output 12/26/17 12/27/17 12/27/17 23:59 07:59 15:59 Intake Total 1000 / 2000 100 / 100 240 / 240 Output Total 400 / 400 300 / 300 Balance 999 / 1999 -300 / -300 -60 / -60 Intake: IV Fluids 1000 / 1000 100 / 100 0.9 % Sodium Chloride 1,000 ML 1000 / 1000 @ 999 mls/hr IVC .Q1H1M ONE Rx# :[id number] Zosyn 3.375 GM In 0.9 % Sodium 100 / 100 Chloride (Mini-Bag +) 100 ML @ 25 mls/hr IVPB Q8HR [facility] Rx#: [id number] Oral 240 / 240 Output: Urine 400 / 400 300 / 300 Other: Meal Breakfast Percent of Meal Consumed 100% Stool Size Moderate Stool Consistency loose Stool Color Brown Green # Voids 1 # Bowel Movements 1 Weight 90.4 kg Patient Weight 12/27/17 23:59 Weight 90.4 kg - Labs 12/27/17 05:19 12/27/17 05:19 Diabetes panel 12/27/17 Range/Units 05:19 Sodium 133 L (136-145) mEq/L Potassium 3.2 L (3.5-5.1) mEq/L Chloride 106 (98-107) mEq/L Carbon Dioxide 18 L (23-29) mEq/L BUN 39 H (8-23) mg/dL Creatinine 1.55 H (0.60-1.20) mg/dL Glucose 130 H (70-105) mg/dL Calcium 7.3 L (8.6-10.3) mg/dL Calcium panel 12/27/17 Range/Units 05:19 Calcium 7.3 L (8.6-10.3) mg/dL Pituitary panel 12/27/17 Range/Units 05:19 Sodium 133 L (136-145) mEq/L Potassium 3.2 L (3.5-5.1) mEq/L Chloride 106 (98-107) mEq/L Carbon Dioxide 18 L (23-29) mEq/L BUN 39 H (8-23) mg/dL Creatinine 1.55 H (0.60-1.20) mg/dL Glucose 130 H (70-105) mg/dL Calcium 7.3 L (8.6-10.3) mg/dL Adrenal panel 12/27/17 Range/Units 05:19 Sodium 133 L (136-145) mEq/L Potassium 3.2 L (3.5-5.1) mEq/L Chloride 106 (98-107) mEq/L Carbon Dioxide 18 L (23-29) mEq/L BUN 39 H (8-23) mg/dL Creatinine 1.55 H (0.60-1.20) mg/dL Glucose 130 H (70-105) mg/dL Calcium 7.3 L (8.6-10.3) mg/dL - Attending Attestation patient seen and examined. i have reviewed all labs, imaging, and notes. i agree with the above assessment and plan and wish to add the following... WBC decreasing decreased pain afebrile; no acute surgery call with any new questions or concerns or should her clinical status changes
[2017-12-28] MEDS: Acetaminophen 325 MG TABLET PO PRN ×2 (00:32→21:02)
[2017-12-28] MEDS: Piperacillin/Tazobactam 3.375 GM in 0.9 % Sodium Chloride Mini Bag 100 ML IVPB SCH ×3 (00:32→17:38)
[2017-12-28] MEDS: Isosorbide MONOnitrate (24 HR) 30 MG TAB.ER.24H PO SCH (08:11)
[2017-12-28] MEDS: Apixaban 5 MG TABLET PO SCH ×2 (08:12→20:52)
--- NOTE | 2017-12-28 09:01 | Electrocardiograph Report ---
[address] [address] Test Date: 2017-12-26 Pat Name: Pili Jc Department: 102 Room: 2N15 Gender: F Computer Security Manager: : 1955 Requested By: Beau Johnson Order Number: [id number] Reading MD: Eliezer Trujillo Measurements Intervals [place] Rate: 97 P: -8 LA: 135 QRS: 9 QRSD: 89 T: -9 QT: 349 QTc: 404 Interpretive Statements SINUS RHYTHM BASELINE ARTIFACT Electronically Signed On 12-28-2017 9:00:12 EDT by Eliezer Trujillo
--- NOTE | 2017-12-28 13:35 | Internal Med Progress Note ---
<Diogo Moser S - Last Filed: 12/28/17 13:22> Hospitalist Progress Note - Encounter Date of Encounter: 12/28/17 Time of Encounter: 09:30 - Subjective Interval History: 62 F with PMHx of afib on eliquis and HTN presents with pain, erythema, and an open wound with bloody discharge from her suprapubic region. She spiked a fever of 100.7 last night and the nurse gave her Tylenol. Patient fully alert this morning and doing well. She still has some pain in her suprapubic region when she ambulates, but overall her pain is much improved. Patient denies CHEN, CP, SOB, abdominal pain, dysuria, changes in bowel habits, numbness/tingling. - Exam Vitals: Temp Pulse Resp BP Pulse Ox 98.6 F 66 18 102/63 96 12/28/17 11:01 12/28/17 11:01 12/28/17 11:01 12/28/17 11:01 12/28/17 11:01 Exam: Gen: no acute distress, A&O x3 Heart: irregular Lungs: clear to auscultation bilaterally, no wheezing Abdomen: suprapubic region was tender to palpation with erythema and overlying dressing, dressing C/D/I, rest of abdomen was soft, non-tender, no rashes +BS in all quadrants Extremities: no edema, neurovascularly intact, full range of motion in LE bilaterally Neuro: no focal deficits - Assessment and Plan (1) Cellulitis Current Visit: Yes Status: Acute Assessment and Plan: Cellulitis of suprapubic region WBC: 22.7 > 14.3 Continue zosyn and vancomycin (day 3) Patient spiked fever (100.7) overnight, will draw more blood cultures x2 Wound care on consult Surgery has signed off (2) Sepsis Current Visit: Yes Status: Acute Assessment and Plan: Improved 2/2 cellulitis and UTI WBC 14.3 Continue IVF Continue Zosyn and Vancomycin (3) Acute renal failure Current Visit: Yes Status: Acute Assessment and Plan: 2/2 hypoperfusion from sepsis Cr improving 2.32 > 1.55 today (baseline ~1) Continue IV fluids (4) UTI (urinary tract infection) Current Visit: Yes Status: Acute Assessment and Plan: Patient not complaining of urinary symptoms Continue IV zosyn (5) Lung nodule Current Visit: Yes Status: Acute Assessment and Plan: Incidental finding Will observe for now (6) DVT prophylaxis Current Visit: Yes Status: Acute DVT Prophylaxis: Continue home eliquis - Time Spent with Patient Total time spent is greater than 50% in coordination of care (as documented) at patient's floor/unit and/or counseling patient: 25 - 35 minutes Plan of Care Discussed with: patient Internal Medicine: Result - Labs CBC & Chem 7: 12/27/17 05:19 12/27/17 05:19 Consult Discharge Plan - Plan Referrals: Candy Wolf CNP [Primary Care Provider] - 01/05/18 3:15 pm <Nika Polanco - Last Filed: 12/28/17 17:18> Hospitalist Progress Note - Encounter Date of Encounter: 12/28/17 - Exam Vitals: Temp Pulse Resp BP Pulse Ox 98.4 F 80 18 95/71 97 12/28/17 16:11 12/28/17 16:11 12/28/17 16:11 12/28/17 16:11 12/28/17 16:11 - Assessment and Plan (1) Cellulitis Current Visit: Yes Status: Acute (2) Lung nodule Current Visit: Yes Status: Acute (3) Sepsis Current Visit: Yes Status: Acute (4) Acute renal failure Current Visit: Yes Status: Acute (5) UTI (urinary tract infection) Current Visit: Yes Status: Acute (6) DVT prophylaxis Current Visit: Yes Status: Acute - Time Spent with Patient Total time spent is greater than 50% in coordination of care (as documented) at patient's floor/unit and/or counseling patient: Internal Medicine: Result - Labs CBC & Chem 7: 12/27/17 05:19 12/27/17 05:19 - Attending Attestation I have seen and examined this patient independently. I have discussed with the resident physician Dr. Moser regarding the management plan. Agree with the documentation. <Diogo Moser Richard - Last Filed: 12/28/17 13:22> (1) Cellulitis Qualifiers: Site of cellulitis: trunk Site of cellulitis of trunk: abdominal wall Qualified Code(s): L03.311 - Cellulitis of abdominal wall (2) Sepsis Qualifiers: Sepsis type: sepsis due to unspecified organism Qualified Code(s): A41.9 - Sepsis, unspecified organism (3) Acute renal failure Qualifiers: Acute renal failure type: unspecified Qualified Code(s): N17.9 - Acute kidney failure, unspecified (4) UTI (urinary tract infection) Qualifiers: Encounter type: initial encounter Qualified Code(s): T83.510A - Infection and inflammatory reaction due to cystostomy catheter, initial encounter; N39.0 - Urinary tract infection, site not specified <Nika Polanco - Last Filed: 12/28/17 17:18> (1) Cellulitis Qualifiers: Site of cellulitis: trunk Site of cellulitis of trunk: abdominal wall Qualified Code(s): L03.311 - Cellulitis of abdominal wall (3) Sepsis Qualifiers: Sepsis type: sepsis due to unspecified organism Qualified Code(s): A41.9 - Sepsis, unspecified organism (4) Acute renal failure Qualifiers: Acute renal failure type: unspecified Qualified Code(s): N17.9 - Acute kidney failure, unspecified (5) UTI (urinary tract infection) Qualifiers: Encounter type: initial encounter Qualified Code(s): T83.510A - Infection and inflammatory reaction due to cystostomy catheter, initial encounter; N39.0 - Urinary tract infection, site not specified
[2017-12-29] MEDS: Piperacillin/Tazobactam 3.375 GM in 0.9 % Sodium Chloride Mini Bag 100 ML IVPB SCH ×2 (00:04→08:30)
[2017-12-29 06:10] LABS: Basophils % 0.4 %; Eosinophils # 0.4 K/mcL (0.0-0.6); Eosinophils % 3.7 %; Hematocrit 29.2 % (35.3-44.9); Hemoglobin 9.6 g/dL (11.5-15.4); Immature Granulocytes % 1.6 % (0-4); Lymphocytes # 1.9 K/mcL (0.6-4.6); Mean Corpuscular HGB Conc 32.9 g/dL (31.6-35.5); Mean Corpuscular Hemoglobin 30.8 pg (28.0-33.3); Mean Corpuscular Volume 93.6 fL (83.0-100.0); Mean Platelet Volume 10.6 fL (9.4-12.4); Monocytes # 1.3 K/mcL (0.0-1.3); Monocytes % 13.7 %; Neutrophils # 5.8 K/mcL (1.6-8.9); Platelet Count 204 K/mcL (140-400); Red Blood Count 3.12 M/mcL (3.82-4.97); Segmented Neutrophils % 60.6 %
[2017-12-29 06:32] LABS: BUN/Creatinine Ratio 23 (6-26); Blood Urea Nitrogen 23 mg/dL (8-23); Calcium 8.4 mg/dL (8.6-10.3); Carbon Dioxide 23 mEq/L (23-29); Chloride 111 mEq/L (98-107); Glucose 108 mg/dL (70-105); Osmolality,Calculated 294 (280-300); Potassium 4.2 mEq/L (3.5-5.1); Sodium 140 mEq/L (136-145); eGFR For Non-African Americans 55 (> 60)
[2017-12-29 06:34] LABS: BUN/Creatinine Ratio 23 (6-26); Blood Urea Nitrogen 23 mg/dL (8-23); eGFR For Non-African Americans 57 (> 60)
[2017-12-29] MEDS: Apixaban 5 MG TABLET PO SCH (08:29)
[2017-12-29] MEDS: Isosorbide MONOnitrate (24 HR) 30 MG TAB.ER.24H PO SCH (08:30)
[2017-12-29 11:30] VITALS: BP 118/75
--- NOTE | 2017-12-29 13:20 | Discharge Summary ---
<Diogo Moser S - Last Filed: 12/29/17 16:09> - NOTES TO OUTPATIENT PROVIDER Notes to Outpatient Provider: Patient sent home on PO Augmentin and Bactrim for 10 days for suprapubic cellulitis Date of Encounter: 12/29/17 Time of Encounter: 09:30 - Discharge Diagnosis (1) Cellulitis Priority: Primary Status: Acute Assessment and Plan: Patient with open wound in suprapubic region with resultant cellulitis Discharged home with Augmentin and Bactrim PO for 10 days Discontinued IV vancomycin and zosyn Patient's pain improving WBC normal Afebrile Qualifiers: Site of cellulitis: trunk Site of cellulitis of trunk: abdominal wall Qualified Code(s): L03.311 - Cellulitis of abdominal wall (2) Sepsis Priority: Primary Status: Acute Assessment and Plan: Resolved HR normal WBC normal Afebrile Discharged home with PO Augmentin and Bactrim Qualifiers: Sepsis type: sepsis due to unspecified organism Qualified Code(s): A41.9 - Sepsis, unspecified organism (3) Acute renal failure Priority: Primary Status: Acute Assessment and Plan: 2/2 sepsis hypoperfusion Cr normal today - 1.01 Qualifiers: Acute renal failure type: unspecified Qualified Code(s): N17.9 - Acute kidney failure, unspecified (4) Lung nodule Priority: Secondary Status: Acute Assessment and Plan: Incidental finding Patient asymptomatic Recommend follow up chest CT in 3 months (5) UTI (urinary tract infection) Priority: Primary Status: Acute Assessment and Plan: Resolved Qualifiers: Urinary tract infection type: site unspecified Qualified Code(s): N39.0 - Urinary tract infection, site not specified Hospital course: Ms. Jc is a 62 year old female who presented with a suprapubic laceration with concomitant erythema and bloody drainage. Patient admitted for sepsis 2/2 cellulitits and UTI. Patient had an elevated WBCPatient started on IV fluids for pressure support, and IV vancomycin and zosyn. Patient had a leukocytosis of 22.7 on admission that is now normal. CT was negative for abscess, but showed an incidental lung nodule with recommended follow-up CT in 3 months. Patient had acute renal failure with Cr of 2.32 on admission, which resolved. Wound care was consulted. Patient spiked a fever on the second night and another set of blood cultures were drawn with no growth at this time. Patient' s lab values have normalized, with improvement of her cellulitis. Patient will be discharged on PO Augmentin and PO Bactrim for 10 days. Patient instructed to follow-up with PCP in one week. Discharge discussed with: patient, nurse - Time Spent with Patient Total time spent providing and/or coordinating discharge services: Less than 30 minutes - Discharge Medications Prescriptions: Amoxicillin/Clavulanate [Augmentin] 875 mg PO BIDWM 10 Days #20 tablet Sulfamethoxazole/Trimeth DS [Bactrim DS] 1 each PO BID 10 Days #20 tablet Home Medications: Allopurinol [Zyloprim 100 MG] 100 mg PO DAILY 07/23/15 [History] Apixaban [Eliquis] 5 mg PO BID 07/23/15 [History] Atenolol [Tenormin] 25 mg PO DAILY 07/23/15 [History] Atorvastatin Calcium [Lipitor] 20 mg PO DAILY 07/23/15 [History] Ferrous Sulfate 325 mg PO DAILY 07/23/15 [History] Lisinopril/Hydrochlorothiazide [Zestoretic 10-12.5 mg Tablet] 1 tab PO DAILY [History] HYDROcodone/Acet 10/325 mg [[place] 10-325 mg] 1 tab PO BID PRN 02/18/17 [History] Isosorbide MONOnitrate (24 HR) [Imdur] 30 mg PO DAILY 02/18/17 [History] Omeprazole [PriLOSEC] 20 mg PO DAILY 02/18/17 [History] Citalopram Hydrobromide [Citalopram HBr] 40 mg PO HS 12/26/17 [History] Amoxicillin/Clavulanate [Augmentin] 875 mg PO BIDWM 10 Days #20 tablet 12/29/17 [Rx] Sulfamethoxazole/Trimeth DS [Bactrim DS] 1 each PO BID 10 Days #20 tablet [Rx] Allergies/Adverse Reactions: 3 Allergy/AdvReac Type Severity Reaction Status Date / Time metoprolol AdvReac Hives Verified 12/26/17 14:31 Date of admission: 12/29/17 12:26 Primary care physician: Canyd Wolf Discharging clinician: Diogo Moser Anticipated date of discharge: 12/29/17 - Constitutional Vitals: Temp Pulse Resp BP Pulse Ox 98.9 F 70 16 118/75 98 12/29/17 11:27 12/29/17 11:27 12/29/17 11:27 12/29/17 11:27 12/29/17 11:27 General appearance: Present: A&O X 3, no acute distress - Head Head exam: Present: atraumatic, normocephalic - Respiratory Respiratory exam: Present: CTAB - Cardiovascular Cardiovascular exam: Present: RRR, +S1, +S2 - GI/Abdominal GI/Abdominal exam: Present: normal bowel sounds, soft, no peritoneal signs Additional comments: Open wound in suprapubic region with resolving erythema and small amount of serosanguinous discharge - Extremities Exam Extremities exam: Present: full ROM, normal inspection, warm, radial pulses palpable and symmetrical - Neurological Exam Neurological exam: Present: alert, CN II-XII intact, oriented X3, no focal deficits - Psychiatric Psychiatric exam: Present: normal affect - Patient Status Disposition: Home, Self-Care Condition: Good Functional capacity at discharge: independent ambulation Overall status at discharge: patient is progressing back to baseline - Discharge Instructions Instructions: Cellulitis (DC) Follow Up With: wound,care [Other] - 01/05/18 8:30 am (This is located by ER in between the glass doors before you enter the main hosp. by the coffee shop) Candy Wolf CNP [Primary Care Provider] - 01/05/18 3:15 pm Additional Instructions: Take antibiotics 10 days as prescribed Follow up with wound care Follow up with PCP within a week Recommend follow-up chest CT in 3 months for incidental lung nodule - Diet and Activity Activity: increase activity as tolerated Diet: advance to your usual diet <Joo Casey - Last Filed: 12/29/17 18:55> Date of Encounter: 12/29/17 - Discharge Diagnosis (1) Cellulitis Status: Acute Qualifiers: Site of cellulitis: trunk Site of cellulitis of trunk: abdominal wall Qualified Code(s): L03.311 - Cellulitis of abdominal wall (2) Lung nodule Status: Acute (3) Sepsis Status: Acute Qualifiers: Sepsis type: sepsis due to unspecified organism Qualified Code(s): A41.9 - Sepsis, unspecified organism (4) Acute renal failure Status: Acute Qualifiers: Acute renal failure type: unspecified Qualified Code(s): N17.9 - Acute kidney failure, unspecified (5) UTI (urinary tract infection) Status: Acute Qualifiers: Urinary tract infection type: site unspecified Qualified Code(s): N39.0 - Urinary tract infection, site not specified Hospital course: Ms. Jc is a 62 year old female - Time Spent with Patient Total time spent providing and/or coordinating discharge services: Date of admission: 12/29/17 12:26 Primary care physician: Candy Wolf - Constitutional Vitals: Temp Pulse Resp BP Pulse Ox 98.9 F 70 16 118/75 98 12/29/17 11:27 12/29/17 11:27 12/29/17 11:27 12/29/17 11:27 12/29/17 11:27 - Attending Attestation I examined this patient and my medical decision-making was reviewed with the Resident Physician Dr. Moser. I agree with the documented findings, disposition and treatment plan as described except to the extent set forth below. Ms. Jc is a 62 year old female who presented with a suprapubic laceration with concomitant erythema and bloody drainage. Patient admitted for sepsis 2/[address] was negative for abscess, but showed an incidental lung nodule with recommended follow-up CT in 3 months. Patient had acute renal failure with Cr of 2.32 on admission, which resolved with IV hydration. For her supra pubic ulcer she was evaluated by surgery who did not recommend any surgical interventions other than local wound care and Abx. Her blood cx no growth so far. She remained afebrile so will switch her to PO Abx Augmentin and Bactrim for 10 more days. Patient instructed to follow-up with PCP in one week. Gen: A, A< O x3 ABd: open wound over lower abdomen region.
[2017-12-29] MEDS ORDERED: Aminoglycoside Consult 1 EACH MC ONE (14:31)
== END 2017-12-29 14:32 | disposition home or self-care (01) | DRG 872 ==
LOC: EMEROO 14:24 → 2NNU 14:24
PROVIDERS: ADMIT Internal Medicine; ATTEND Internal Medicine